=== PATIENT | female | born 1950 | race Caucasian/White ===

== ENCOUNTER 2025-02-07 15:55 | Inpatient (IN) | payer OTHER, SELFPAY ==
--- NOTE | ~2025-02-07 | CT_ITS ---
Procedure: CT hip RT wo con Ordering provider: Esperanza Wen PA-C History: . right hip pain, fall, possible fracture . Comparison: None. Technique: Thin slice axial CT of the No IV contrast was given. Sagittal and coronal reformatted imag es were also obtained and reviewed. Radiation reduction technique utilized.The dose-length product wa s 120.55 mGy-cm. Findings: BONES: Fracture is seen in the subcapital area of the right femoral neck with no significant displace ment JOINT SPACES: Normal. SOFT TISSUES: Soft tissue density around the femoral neck which may be a hematoma. IMPRESSION: Fracture of the right femoral neck in the subcapital area. No other fractures seen. Reviewed, dictated and finalized at location A.
--- NOTE | ~2025-02-07 | XR_ITS ---
EXAMINATION: XR surgery orthopedic DATE: 02/08/2025 12:29 INDICATION: Right hip pinning TECHNIQUE: 2 fluoroscopic images of the right hip were obtained during procedure performed by Dr. Raysa vásquez. Radiologist was not present for the imaging or procedure. The amount of fluoroscopy time used d uring this procedure was 1.3 minutes. Total DAP was 3.36 Gycm^2. COMPARISON: None. FINDINGS: Interval fixation of a subcapital fracture of the proximal right femur with 3 cannulated lag screws. No new fractures identified. Alignment remains essentially anatomic. Mild right hip osteoarthritis. IMPRESSION: 1. Fluoroscopy utilized during lag screw fixation of a nondisplaced subcapital fracture of the proxim al right femur which remains in near-anatomic alignment. See procedure note for further detail. Reviewed, dictated and finalized at location A. IMPRESSION: 1. Fluoroscopy utilized during lag screw fixation of a nondisplaced subcapital fracture of the proximal right femur which remains in near-anatomic alignment. See procedure note for further detail.
--- NOTE | ~2025-02-07 | XR_ITS ---
XR hip RT 2V w AP pelvis Ordering provider: Esperanza Wen PA-C History: . FALL, HIP PAIN . Comparison: None. FINDINGS: BONES: Highly suggestive right femoral neck fracture in the subcapital area. CT evaluation advised. HIP JOINT SPACES: Bilateral hip severe osteoarthritic changes. SACROILIAC JOINT SPACES/LUMBAR SPINE: The sacroiliac joint spaces are normal. Mild degenerative beltran es of the visualized lower lumbar spine. PUBIC SYMPHYSIS: Normal. SOFT TISSUES: Normal. IMPRESSION: Highly suggestive fracture in the right femoral neck. CT evaluation advised. Reviewed, dictated and finalized at location A.
--- NOTE | ~2025-02-07 | XR_ITS ---
XR wrist RT min 3V Ordering provider: Esperanza Wen PA-C History: . fall, wrist pain . Comparison: None. FINDINGS: BONES: Possible fracture in the scaphoid bone is noted. Follow-up advised. Osteopenia of the bones. JOINT SPACES: Osteoarthritic changes of the first carpometacarpal joint and in the scaphotrapezial ken int. SOFT TISSUES: Normal. IMPRESSION: Possible fracture in the scaphoid bone. Follow-up advised. Reviewed, dictated and finalized at location A.
--- NOTE | ~2025-02-07 | XR_ITS ---
CHEST RADIOGRAPH CLINICAL HISTORY: fall . COMPARISON: None available TECHNIQUE: Single portable view of the chest. FINDINGS The cardiomediastinal silhouette is unremarkable. The lungs are clear. IMPRESSION: No focal infiltrate or effusion. Reviewed, dictated and finalized at location A.
[2025-02-07 15:58] VITALS: BP 146/74; PULSE 70; RESP 18; TEMP 36.4; O2SAT 99
--- NOTE | 2025-02-07 16:29 | ED_ITS ---
HPI - Fall General Chief Complaint: Fall Stated Complaint: GLF, R hip pain Time Seen by Provider: 02/07/25 15:59 Source: patient Mode of arrival: EMS Limitations: no limitations History of Present Illness HPI Narrative: This is a 74 year old female that presents to the ER after a fall today with right hip pain. Reports she was trying to fix the soap dispenser on the wall. She was trying to pull it off the wall and fell backwards. Landed on her right hip and wrist. Reports pain in the wrist. Unable to bear weight on the right leg. She did not hit her head or lose consciousness. She is not on anticoagulation. Related Data Home Medications ?Medication ?Instructions ?Recorded ?Confirmed ?Last Taken ?Type albuterol sulfate 90 mcg/actuation 2 puff inhalation Q4H PRN 02/07/25 02/07/25 Unknown History aerosol inhaler shortness of breath or wheezing Allergies Allergy/AdvReac Type Severity Reaction Status Date / Time egg Allergy Unknown Drowsy Verified 02/07/25 16:03 No Known Allergies Allergy Verified 02/07/25 16:03 Review of Systems 2 Review of Systems: All systems reviewed & are unremarkable except as noted in HPI and below PMFSH Past Medical History Medical History COPD, severe Family History Family History Father Acute myocardial infarction Mother Family history of malignant neoplasm Social History Social History Smoking packs per day: 1 Smoking cigarettes per day: 20.0 Years smoked: 50 Smoking pack-years: 50.00 Smoking status: Current every day smoker Alcohol intake: never Substance use: never Do You Feel Safe in your Home?: Yes Lack of Transportation: No Lack of Food: Never True Current Housing: I Have Housing Concerned About Future Housing: No Difficulty Paying Gas/Electric Bills: No Difficulty Paying for Meds: No Currently Unemployed: No Education: Associate Degree Difficulty w/ Childcare or Family Care: No Spiritual care concerns: No Exam 2 Narrative: GENERAL: Elderly, well-nourished, and in no acute distress. HEAD: Normocephalic, atraumatic. EYES: PERRLA and EOMI. ENT: Nares clear, no rhinorrhea or epistaxis. Mucous membranes moist. Oropharynx without tonsillar hypertrophy exudate or other lesions. NECK: Supple. No adenopathy or masses. CHEST: Clear to auscultation. No respiratory distress. No wheezes rales or rhonchi HEART: Regular rate and rhythm. No murmur heard. Normal peripheral pulses. EXTREMITIES: Normal range of motion, except decreased active ROM in the right hip. No edema. Normal DP and radial pulses. Normal sensation SKIN: Warm, dry, no rash. NEURO: No focal deficits. Alert and oriented x3. PSYCH: Normal mood and affect Course Course Emergency Course: Patient and family updated on workup and need for admission Consultations Consultation #1: Spoke with Dr. Francisco who will consult. Patient will be NPO at midnight Date: 02/07/25 Consultation #2: Spoke with hospitalist about patient and workup who accepts admission Date: 02/07/25 Vital Signs Vital signs: Vital Signs Temperature 97.6 F 02/07/25 15:58 Pulse Rate 70 02/07/25 15:58 Respiratory Rate 18 02/07/25 15:58 Blood Pressure 146/74 H 02/07/25 15:58 Pulse Oximetry 99 02/07/25 15:58 Oxygen Delivery Room Air 02/07/25 15:58 Temperature 98.6 F 02/08/25 15:38 Pulse Rate 75 02/08/25 15:38 Respiratory Rate 18 02/08/25 15:38 Blood Pressure 121/55 L 02/08/25 15:38 Pulse Oximetry 96 02/08/25 15:38 Oxygen Delivery Nasal Cannula 02/08/25 14:49 Oxygen Flow Rate 2 02/08/25 14:49 Procedures Orthopedic Splinting/Casting Injury #1: Splinting/Casting Date: 02/07/25 Side: right Upper Extremity Injury Location: wrist OCL: volar Pre-Procedure Neuro Vascular Exam: normal Post-Procedure Neuro Vascular Exam: normal MDM - Fall MDM Narrative Medical decision making narrative: Patient presents to the emergency department after a ground level fall at work with right hip and wrist pain. She is neurologically intact. She did not hit her head or lose consciousness. Her vitals are stable. Cbc and metabolic panel without concerning findings. Hip x-ray showing possible femoral neck fracture. CT obtained which does confirm fracture in the right femoral neck. Right wrist x-ray showing possible fracture in the scaphoid bone. This is the area of patient's discomfort. Will place patient in a splint. Spoke with Dr. Francisco about patient and workup. Patient will be made NPO at midnight. Spoke with hospitalist about patient and workup who accepts admission Differential Diagnosis Differential diagnosis: Likely other (Hip fracture, pelvic fracture, wrist fracture) Lab Data Attestation: I reviewed the patient's lab results. 02/08/25 05:22 02/08/25 05:22 Labs: Lab Results 02/07/25 02/08/25 Range/Units 18:05 05:22 WBC 9.6 7.3 (4.5-10.0) K/mm3 RBC 4.01 L 3.69 L (4.2-5.4) M/mm3 Hgb 12.7 12.0 (12.0-15.0) g/dL Hct 38.5 36.0 L (37.0-47.0) % MCV 96.0 97.6 (80-100) fl MCH 31.7 32.5 (26-34) pg MCHC 33.0 33.3 (32-36) g/dl RDW 13.1 13.1 (11.5-14.5) % Plt Count 184 151 (150-375) k/mm3 MPV 9.4 10.0 (7.4-10.4) fl Immature Gran % (Auto) 0.5 0.4 (0-0.5) % Neut % (Auto) 84.5 H 81.2 H (45.5-73.1) % Lymph % (Auto) 9.0 L 8.7 L (18.3-44.2) % [facility] % (Auto) 4.3 7.6 (2.6-8.5) % Eos % (Auto) 1.4 1.7 (0-4.4) % Baso % (Auto) 0.3 0.4 (0.2-1.2) % Lymph # (Auto) 0.87 L 0.63 L (0.9-3.2) K/mm3 [facility] # (Auto) 0.4 0.6 (0.1-0.6) K/mm3 Eos # (Auto) 0.1 0.1 (0-0.3) K/mm3 Baso # (Auto) 0.0 0.0 (0.0-0.1) K/mm3 Abs Immat Gran (auto) 0.05 H 0.03 (0.00-0.031) K/mm3 Absolute Neuts (auto) 8.1 H 5.9 (1.3-6.7) K/mm3 Absolute Nucleated RBC 0.000 0.000 (0.0-0.012) K/mm3 Nucleated RBC % 0.0 0.0 (0.0-0.2) % Sodium 138 138 (137-145) mmol/L Potassium 4.1 3.8 (3.4-5.0) mmol/L Chloride 105 107 (98-107) mmol/L Carbon Dioxide 26 26 (22-30) mmol/L Anion Gap 7 5 (4-12) mmol/L BUN 14 12 (7-17) mg/dL Creatinine 0.51 L 0.48 L (0.7-1.0) mg/dL Estim Creat Clear Calc 69 64 ml/min Estimated GFR > 60 > 60 (59 - ) Glucose 99 108 (65-110) mg/dL Calcium 9.1 8.6 (8.4-10.2) mg/dL Magnesium 2.1 (1.6-2.3) mg/dL Total Bilirubin 0.4 0.7 (0.2-1.3) mg/dL AST 26 22 (14-36) U/L ALT 17 15 (6-35) U/L Alkaline Phosphatase 43 35 L (38-126) U/L Total Protein 6.7 6.0 L (6.3-8.2) g/dL Albumin 4.0 3.6 (3.5-5.1) g/dL Imaging Data Radiologist's impression: ITS Impressions Wrist X-Ray 02/07/25 16:48 IMPRESSION: Possible fracture in the scaphoid bone. Follow-up advised. Chest X-Ray 02/07/25 16:49 IMPRESSION: No focal infiltrate or effusion. Hip/Pelvis X-Ray 02/07/25 16:50 IMPRESSION: Highly suggestive fracture in the right femoral neck. CT evaluation advised. Hip CT 02/07/25 17:42 IMPRESSION: Fracture of the right femoral neck in the subcapital area. No other fractures seen. Critical Care Time Critical Care Time Critical Care Time: No Discharge Plan Discharge Clinical Impression: Fracture of right femur Qualifiers: Encounter type: initial encounter Femur location: neck, unspecified portion F racture type: closed Qualified Code(s): S72.001A - Fracture of unspecified part of neck of right femur, initial encounter for closed fracture Fracture of scaphoid of right wrist Qualifiers: Encounter type: initial encounter Scaphoid bone location: unspecified portion of scaphoid Fracture type: closed Fracture alignment: nondisplaced Qualified Code(s): S62.001A - Unspecified fracture of navicular [scaphoid] bone of right wrist, initial encounter for closed fracture Patient Disposition: Still a Patient Condition: Stable
[2025-02-07] MEDS: ACETAMINOPHEN 500 MG TABLET 1000 MG PO (18:01)
[2025-02-07 18:03] VITALS: BP 125/82; PULSE 83; RESP 20; O2SAT 96
--- NOTE | 2025-02-07 18:03 | PC.NURSE ---
Pt declining anything stronger than tylenol for pain control.
[2025-02-07 18:11] LABS: Basophils Percent Auto 0.3 % (0.2-1.2); Eosinophils Absolute Auto 0.1 K/mm3 (0-0.3); Eosinophils Percent Auto 1.4 % (0-4.4); Hematocrit 38.5 % (37.0-47.0); Hemoglobin 12.7 g/dL (12.0-15.0); Immature Granulocyte Absolute 0.05 K/mm3 (0.00-0.031); Immature Granulocyte Percent A 0.5 % (0-0.5); Lymphocytes Absolute Auto 0.87 K/mm3 (0.9-3.2); Mean Corpuscular Hemoglobin 31.7 pg (26-34); Mean Platelet Volume 9.4 fl (7.4-10.4); Monocytes Absolute Auto 0.4 K/mm3 (0.1-0.6); Monocytes Percent Auto 4.3 % (2.6-8.5); Neutrophils Absolute Auto 8.1 K/mm3 (1.3-6.7); Neutrophils Percent Auto 84.5 % (45.5-73.1); Platelet Count Result 184 k/mm3 (150-375); Red Blood Count 4.01 M/mm3 (4.2-5.4); Red Cell Distribution Width 13.1 % (11.5-14.5); White Blood Count 9.6 K/mm3 (4.5-10.0)
[2025-02-07 18:22] LABS: Alanine Aminotransferase 17 U/L (6-35); Alkaline Phosphatase 43 U/L (38-126); Anion Gap 7 mmol/L (4-12); Aspartate Amino Transferase 26 U/L (14-36); Bilirubin,Total 0.4 mg/dL (0.2-1.3); Blood Urea Nitrogen 14 mg/dL (7-17); Calcium 9.1 mg/dL (8.4-10.2); Carbon Dioxide 26 mmol/L (22-30); Chloride 105 mmol/L (98-107); Estimated CRCL calculation 69 ml/min; Estimated Glomerular Filt Rate > 60; Glucose 99 mg/dL (65-110); Potassium 4.1 mmol/L (3.4-5.0); Sodium 138 mmol/L (137-145); Total Protein 6.7 g/dL (6.3-8.2)
[2025-02-07 19:25] VITALS: BP 154/75; PULSE 82; RESP 17; O2SAT 93
[2025-02-07] MEDS: oxyCODONE HCL (*CRX) 5 MG TAB IR PO (20:47)
[2025-02-07] MEDS: SODIUM CHLORIDE 0.9% IV 1,000 ML 125 ML IV CONT (21:21)
--- NOTE | 2025-02-07 21:32 | P.HP_ITS ---
H&P: HPI History of Present Illness Date/Time: 02/07/25 21:32 Chief Complaint: right hip pain Narrative: 74 yo female with PMH of COPD who presented to the ER on account of right hip pain after a fall. Noted she was fixing a dispenser in the bathroom at work when she pulled on it and fell backwards on her right side. Denies any chest pain, SOB, abd pain, diarrhea, vomiting or dysuria prior to episode. ER eval notable for vital stable and wnl, labs unremarkable, CT hip showed right femoral neck fracture Xray right wrist showed right scaphoid fracture. CXR unremarkable. Ortho was consulted prior to admission Review of Systems Review of Systems: All other systems were reviewed adn negative except as noted in the HPI above [facility] Past Medical History Medical History (Updated 02/07/25 @ 19:46 by Esperanza Wen PA-C) COPD, severe Family History Family History (Updated 09/21/18 @ 08:13 by DOCTOR UNKNOWN) Father Acute myocardial infarction Mother Family history of malignant neoplasm Meds Home Medications and Allergies Allergies Allergy/AdvReac Type Severity Reaction Status Date / Time egg Allergy Unknown Drowsy Verified 02/07/25 16:03 No Known Allergies Allergy Verified 02/07/25 16:03 Vital Signs Vital Signs - 24 hr 02/07/25 15:58 02/07/25 18:03 02/07/25 19:25 Temperature 97.6 F Pulse Rate 70 83 82 Respiratory Rate 18 20 17 Blood Pressure 146/74 H 125/82 154/75 H Pulse Oximetry 99 96 93 Oxygen Delivery Room Air Exam Narrative: General: alert and comfortable Eyes: EOMI, PERRLA ENNT External ears normal, Neck is supple, no masses, Respiratory systems: Clear to auscultation Cardiovascular S1, S2, normal rhythm, no murmur, rub, or gallop; no thrill or palpable murmurs on palpation. Gastrointestinal: soft, non-tender, and non-distended abdomen with no masses; BS present Skin: no rash, lesions, ulcerations, subcutaneous nodules or induration Musculoskeletal: limited ROM RE due to pain, and right wrist tenderness and swelling Neurologic: Alert and oriented x3, non focal Mental Status Exam: normal affect H&P: Results Labs Labs: Short CBC 02/07/25 Range/Units 18:05 WBC 9.6 (4.5-10.0) K/mm3 Hgb 12.7 (12.0-15.0) g/dL Hct 38.5 (37.0-47.0) % Plt Count 184 (150-375) k/mm3 BMP 02/07/25 18:05 Sodium 138 Potassium 4.1 Chloride 105 Carbon Dioxide 26 BUN 14 Creatinine 0.51 L Glucose 99 Calcium 9.1 Liver Function 02/07/25 Range/Units 18:05 Total Bilirubin 0.4 (0.2-1.3) mg/dL AST 26 (14-36) U/L ALT 17 (6-35) U/L Alkaline Phosphatase 43 (38-126) U/L Albumin 4.0 (3.5-5.1) g/dL Assessment and Plan Assessment and plan (1) Fracture of scaphoid of right wrist: Qualifiers: Encounter type: initial encounter Fracture alignment: nondisplaced Fracture type: closed Scaphoid bone location: unspecified portion of scaphoid Qualified Code(s): S62.001A - Unspecified fracture of navicular [scaphoid] bone of right wrist, initial encounter for closed fracture Code(s): S62.001A - Unspecified fracture of navicular [scaphoid] bone of right wrist, initial encounter for closed fracture Status: Acute (2) Fracture of right femur: Qualifiers: Encounter type: initial encounter Femur location: neck, unspecified portion Fracture type: closed Qualified Code(s): S72.001A - Fracture of unspecified part of neck of right femur, initial encounter for closed fracture Code(s): S72.91XA - Unspecified fracture of right femur, initial encounter for closed fracture Status: Acute Plan Right femoral neck fracture From mechanical fall CT hip reviewed Contineu PRN pain control Ortho consulted Right scaphoid fracture from fall as above PRN pain control and ortho consulted COPD DuoNeb prn Tobacco use patient counseled about cessation DVT prophylaxis on Sq lovenox Full code SDM: Edelmira Greenfieldaldson Hospitalist MIPS Advance Care Plan I have confirmed that the patient's Advanced Care Plan is present, code status is documented, or surrogate decision maker is listed in patient medical record.: Yes Medication Reconciliation I have utilized all available resources to obtain, update and review the patients current medications (includes all prescriptions, OTC, herbals, cannabis, and nutritional supplements).: Yes
[2025-02-07 21:58] VITALS: BMI 24.5
--- NOTE | 2025-02-07 22:14 | ADMGEN ---
This patient, Violet Lopez, was admitted to 2 Medical Room 259-01. Patient/family oriented to hospital policies and general routines including ID bracelet, bed and alarms, visiting hours, pain management, procedures, bathroom and other care routines, personal items, smoking policy, room service/diet, and visiting hours. Information on how to activate the Rapid Response Team has been discussed. Patient/Family are encouraged to report perceived risks to care and to ask questions if they do not understand what they are told or what they should do.
[2025-02-07 22:24] VITALS: BP 154/75; PULSE 82; RESP 17; O2SAT 93
[2025-02-07] MEDS: MORPHINE SULFATE (*CRX) 2 MG/ML INJ IV PUSH (22:26)
[2025-02-07 22:29] VITALS: BP 139/64; PULSE 87; RESP 24; TEMP 37; O2SAT 95
[2025-02-08] VITALS (13 sets, daily range): BP systolic 121–150; BP diastolic 48–73; PULSE 72–86; RESP 14–20; TEMP 36.8–37.4; O2SAT 90–100
[2025-02-08 05:58] LABS: Basophils Percent Auto 0.4 % (0.2-1.2); Eosinophils Absolute Auto 0.1 K/mm3 (0-0.3); Eosinophils Percent Auto 1.7 % (0-4.4); Immature Granulocyte Absolute 0.03 K/mm3 (0.00-0.031); Immature Granulocyte Percent A 0.4 % (0-0.5); Lymphocytes Absolute Auto 0.63 K/mm3 (0.9-3.2); Lymphocytes Percent Auto 8.7 % (18.3-44.2); Mean Corpuscular HGB Conc 33.3 g/dl (32-36); Mean Corpuscular Hemoglobin 32.5 pg (26-34); Mean Corpuscular Volume 97.6 fl (80-100); Monocytes Absolute Auto 0.6 K/mm3 (0.1-0.6); Monocytes Percent Auto 7.6 % (2.6-8.5); Neutrophils Absolute Auto 5.9 K/mm3 (1.3-6.7); Neutrophils Percent Auto 81.2 % (45.5-73.1); Platelet Count Result 151 k/mm3 (150-375); Red Blood Count 3.69 M/mm3 (4.2-5.4); Red Cell Distribution Width 13.1 % (11.5-14.5); White Blood Count 7.3 K/mm3 (4.5-10.0)
[2025-02-08 06:09] LABS: Alanine Aminotransferase 15 U/L (6-35); Albumin Level 3.6 g/dL (3.5-5.1); Alkaline Phosphatase 35 U/L (38-126); Anion Gap 5 mmol/L (4-12); Aspartate Amino Transferase 22 U/L (14-36); Bilirubin,Total 0.7 mg/dL (0.2-1.3); Blood Urea Nitrogen 12 mg/dL (7-17); Calcium 8.6 mg/dL (8.4-10.2); Carbon Dioxide 26 mmol/L (22-30); Chloride 107 mmol/L (98-107); Estimated CRCL calculation 64 ml/min; Estimated Glomerular Filt Rate > 60; Glucose 108 mg/dL (65-110); Magnesium 2.1 mg/dL (1.6-2.3); Potassium 3.8 mmol/L (3.4-5.0); Sodium 138 mmol/L (137-145)
[2025-02-08] MEDS: SODIUM CHLORIDE 0.9% IV 1,000 ML 125 ML IV CONT ×3 (08:16→20:39)
[2025-02-08] MEDS: IPRATROPIUM 0.5 MG/ALBUTEROL SULFATE 2.5 MG AMPUL.NEB 3 ML INHALATION (10:19)
--- NOTE | 2025-02-08 10:25 | WPDANESEPPF ---
Anes - Initial Pre Proc Eval Procedure: Operation Date: 02/08/25 11:00 Proposed Procedures p Hip Pinning Cannulated Screws(Right) - Rodrigo Francisco MD Date/Time: 02/08/25 10:25 Surgeon: Rodrigo Francisco MD Pre Op Diagnosis: Right hip fracture Patient Data Age: 74 Gender: F Height: 1.55 m Weight: 59 kg Last Vital Signs Temp 36.8 C 02/08/25 05:49 Pulse 81 02/08/25 10:21 Resp 16 02/08/25 10:21 BP 142/64 H 02/08/25 05:49 Pulse Ox 93 02/08/25 05:49 O2 Del Method Room Air 02/07/25 15:58 Allergies Allergy/AdvReac Type Severity Reaction Status Date / Time egg Allergy Unknown Drowsy Verified 02/07/25 16:03 No Known Allergies Allergy Verified 02/07/25 16:03 Home Medications ?Medication ?Instructions ?Recorded ?Confirmed ?Type albuterol sulfate 90 mcg/actuation 2 puff inhalation Q4H PRN 02/07/25 02/07/25 History aerosol inhaler shortness of breath or wheezing Laboratory Tests 02/07/25 02/08/25 18:05 05:22 WBC 9.6 K/mm3 7.3 K/mm3 (4.5-10.0) (4.5-10.0) RBC 4.01 L M/mm3 3.69 L M/mm3 (4.2-5.4) (4.2-5.4) Hgb 12.7 g/dL 12.0 g/dL (12.0-15.0) (12.0-15.0) Hct 38.5 % 36.0 L % (37.0-47.0) (37.0-47.0) MCV 96.0 fl 97.6 fl (80-100) (80-100) MCH 31.7 pg 32.5 pg (26-34) (26-34) MCHC 33.0 g/dl 33.3 g/dl (32-36) (32-36) RDW 13.1 % 13.1 % (11.5-14.5) (11.5-14.5) Plt Count 184 k/mm3 151 k/mm3 (150-375) (150-375) MPV 9.4 fl 10.0 fl (7.4-10.4) (7.4-10.4) Immature Gran % (Auto) 0.5 % 0.4 % (0-0.5) (0-0.5) Neut % (Auto) 84.5 H % 81.2 H % (45.5-73.1) (45.5-73.1) Lymph % (Auto) 9.0 L % 8.7 L % (18.3-44.2) (18.3-44.2) [facility] % (Auto) 4.3 % 7.6 % (2.6-8.5) (2.6-8.5) Eos % (Auto) 1.4 % 1.7 % (0-4.4) (0-4.4) Baso % (Auto) 0.3 % 0.4 % (0.2-1.2) (0.2-1.2) Lymph # (Auto) 0.87 L K/mm3 0.63 L K/mm3 (0.9-3.2) (0.9-3.2) [facility] # (Auto) 0.4 K/mm3 0.6 K/mm3 (0.1-0.6) (0.1-0.6) Eos # (Auto) 0.1 K/mm3 0.1 K/mm3 (0-0.3) (0-0.3) Baso # (Auto) 0.0 K/mm3 0.0 K/mm3 (0.0-0.1) (0.0-0.1) Abs Immat Gran (auto) 0.05 H K/mm3 0.03 K/mm3 (0.00-0.031) (0.00-0.031) Absolute Neuts (auto) 8.1 H K/mm3 5.9 K/mm3 (1.3-6.7) (1.3-6.7) Absolute Nucleated RBC 0.000 K/mm3 0.000 K/mm3 (0.0-0.012) (0.0-0.012) Nucleated RBC % 0.0 % 0.0 % (0.0-0.2) (0.0-0.2) Sodium 138 mmol/L 138 mmol/L (137-145) (137-145) Potassium 4.1 mmol/L 3.8 mmol/L (3.4-5.0) (3.4-5.0) Chloride 105 mmol/L 107 mmol/L (98-107) (98-107) Carbon Dioxide 26 mmol/L 26 mmol/L (22-30) (22-30) Anion Gap 7 mmol/L 5 mmol/L (4-12) (4-12) BUN 14 mg/dL 12 mg/dL (7-17) (7-17) Creatinine 0.51 L mg/dL 0.48 L mg/dL (0.7-1.0) (0.7-1.0) Estim Creat Clear Calc 69 ml/min 64 ml/min Estimated GFR > 60 > 60 (59 - ) (59 - ) Glucose 99 mg/dL 108 mg/dL (65-110) (65-110) Calcium 9.1 mg/dL 8.6 mg/dL (8.4-10.2) (8.4-10.2) Magnesium 2.1 mg/dL (1.6-2.3) Total Bilirubin 0.4 mg/dL 0.7 mg/dL (0.2-1.3) (0.2-1.3) AST 26 U/L 22 U/L (14-36) (14-36) ALT 17 U/L 15 U/L (6-35) (6-35) Alkaline Phosphatase 43 U/L 35 L U/L (38-126) (38-126) Total Protein 6.7 g/dL 6.0 L g/dL (6.3-8.2) (6.3-8.2) Albumin 4.0 g/dL 3.6 g/dL (3.5-5.1) (3.5-5.1) Patient hx anesthesia problems: none Family hx anesthesia problems: none Results Review: All pre-operative results and documents have been reviewed as part of the pre-operative evaluation. [facility] Past Medical History Medical History (Updated 02/07/25 @ 19:46 by Esperanza Wen PA-C) COPD, severe Family History Family History (Updated 09/21/18 @ 08:13 by DOCTOR UNKNOWN) Father Acute myocardial infarction Mother Family history of malignant neoplasm Social History Social History (Updated 02/08/25 @ 10:25 by Ty Sanon DO) Smoking packs per day: 1 Smoking cigarettes per day: 20.0 Years smoked: 50 Smoking pack-years: 50.00 Smoking status: Current every day smoker Alcohol intake: never Substance use: never Do You Feel Safe in your Home?: Yes Lack of Transportation: No Lack of Food: Never True Current Housing: I Have Housing Concerned About Future Housing: No Difficulty Paying Gas/Electric Bills: No Difficulty Paying for Meds: No Currently Unemployed: No Education: Associate Degree Difficulty w/ Childcare or Family Care: No Spiritual care concerns: No Anes - Eval Final PreProcedure Day of Procedure 02/08/25 10:25 Patient weight: normal Heart: regular rate and rhythm Lungs: clear to auscultation Airway: Mallampati scale class II Neurological: alert and oriented Last oral intake: >/= 8 hours ASA classification: III Emergent: no Anesthetic plan: proceed Anesthesia type and monitoring: general LMA and standard monitoring Results Review: All pre-operative results and documents have been reviewed as part of the pre-operative evaluation. Informed Consent: The patient's anesthetic plan and its attendant risks and benefits were discussed with the patient/family/POA. Questions were solicited and answers provided to the satisfaction of the patient/family/POA.
--- NOTE | 2025-02-08 10:59 | WPDHPUPDATE1 ---
History and Physical Update Update Date/Time: 02/08/25 10:59 History and Physical has been reviewed, including an updated exam of the patient. There are NO changes in the patient's condition. Risks, benefits, and alternatives have been discussed and questions answered. Patient agrees to proceed with procedure. The patient was advised of a procedure which is a right hip percutaneous screw fixation she understands that this will enable us to save the femoral head. The disadvantage is that there is a possibility that she may need additional surgery if this does not heal and the femoral head does not survive which will be a hemiarthroplasty. Therefore the risks include but are not limited to infection nerve and blood vessel injury nonunion malunion requiring additional surgery and she agrees to proceed deep venous thrombosis is also a risk for this procedure
--- NOTE | 2025-02-08 11:01 | P.HP_ITS ---
H&P: HPI History of Present Illness Date/Time: 02/08/25 11:01 Chief Complaint: Right hip fracture, right wrist scaphoid fracture Narrative: Pain is located over the anterior aspect of the right hip with any movement. It is a sharp sensation. Continuous. Feels better when she is not moving. The pain started after the patient fell onto the right hip yesterday The patient is a part-time employee at [employer]. He was removing a broken soap dispenser from the wall at which time the substance her broke free unexpectedly when she pulled back on it and she landed onto her right hip and also onto her right outstretched upper extremity. She was unable to bear weight on this and was brought to the [facility] Emergency Room by ambulance. She reports pain nowhere else except for the right wrist and also in the right hip. Review of Systems Review of Systems: All systems reviewed & are unremarkable except as noted in HPI and below Constitutional: Constitutional: Reports as per HPI PMFSH Past Medical History Medical History COPD, severe Family History Family History Father Acute myocardial infarction Mother Family history of malignant neoplasm Social History Social History Smoking packs per day: 1 Smoking cigarettes per day: 20.0 Years smoked: 50 Smoking pack-years: 50.00 Smoking status: Current every day smoker Alcohol intake: never Substance use: never Do You Feel Safe in your Home?: Yes Lack of Transportation: No Lack of Food: Never True Current Housing: I Have Housing Concerned About Future Housing: No Difficulty Paying Gas/Electric Bills: No Difficulty Paying for Meds: No Currently Unemployed: No Education: Associate Degree Difficulty w/ Childcare or Family Care: No Spiritual care concerns: No Meds Home Medications and Allergies Home Medications ?Medication ?Instructions ?Recorded ?Confirmed ?Type albuterol sulfate 90 mcg/actuation 2 puff inhalation Q4H PRN 02/07/25 02/07/25 History aerosol inhaler shortness of breath or wheezing Allergies Allergy/AdvReac Type Severity Reaction Status Date / Time egg Allergy Unknown Drowsy Verified 02/07/25 16:03 No Known Allergies Allergy Verified 02/07/25 16:03 Vital Signs Vital Signs - 24 hr 02/07/25 15:58 02/07/25 18:03 02/07/25 19:25 Temperature 36.4 C Pulse Rate 70 83 82 Respiratory Rate 18 20 17 Blood Pressure 146/74 H 125/82 154/75 H Pulse Oximetry 99 96 93 Oxygen Delivery Room Air 02/07/25 22:24 02/07/25 22:29 02/08/25 05:49 Temperature 37.0 C 36.8 C Pulse Rate 82 87 85 Respiratory Rate 17 24 H 20 Blood Pressure 154/75 H 139/64 142/64 H Pulse Oximetry 93 95 93 Oxygen Delivery 02/08/25 08:15 02/08/25 10:21 02/08/25 10:27 Temperature Pulse Rate 81 73 Respiratory Rate 16 20 Blood Pressure Pulse Oximetry Oxygen Delivery Room Air Exam Narrative: On examination of the patient she is awake and alert and oriented to person place and time. The right lower extremity shows good capillary refill and good sensation to all her toes. She has no swelling tenderness or deformity to the right knee or left knee to the right ankle or the left ankle and no pain with range of motion of the left hip. Right upper extremity examination reveals tenderness over the anatomic snuffbox. I took down the splint in order to examine her right hand. Left upper extremity shows no swelling tenderness or deformity of the shoulder elbow or the wrist. No swelling tenderness or deformity of the right elbow or the right shoulder. Bilateral lower extremities are equal in length with no evidence of shortening of the right lower extremity. Const: General: cooperative, healthy appearing, comfortable, no acute distress, well developed, alert, awake and average body habitus Nutritional Appearance: average body habitus Orientation/consciousness: oriented to person, oriented to place and oriented to time H&P: Results Labs Labs: Short CBC 02/07/25 02/08/25 Range/Units 18:05 05:22 WBC 9.6 7.3 (4.5-10.0) K/mm3 Hgb 12.7 12.0 (12.0-15.0) g/dL Hct 38.5 36.0 L (37.0-47.0) % Plt Count 184 151 (150-375) k/mm3 [facility] 02/07/25 02/08/25 18:05 05:22 Sodium 138 138 Potassium 4.1 3.8 Chloride 105 107 Carbon Dioxide 26 26 BUN 14 12 Creatinine 0.51 L 0.48 L Glucose 99 108 Calcium 9.1 8.6 Liver Function 02/07/25 02/08/25 Range/Units 18:05 05:22 Total Bilirubin 0.4 0.7 (0.2-1.3) mg/dL AST 26 22 (14-36) U/L ALT 17 15 (6-35) U/L Alkaline Phosphatase 43 35 L (38-126) U/L Albumin 4.0 3.6 (3.5-5.1) g/dL Assessment and Plan Assessment and plan (1) Fracture of scaphoid of right wrist: Qualifiers: Encounter type: initial encounter Fracture alignment: nondisplaced Fracture type: closed Scaphoid bone location: unspecified portion of scaphoid Qualified Code(s): S62.001A - Unspecified fracture of navicular [scaphoid] bone of right wrist, initial encounter for closed fracture Code(s): S62.001A - Unspecified fracture of navicular [scaphoid] bone of right wrist, initial encounter for closed fracture Status: Acute (2) Fracture of right femur: Qualifiers: Encounter type: initial encounter Femur location: neck, unspecified portion Fracture type: closed Qualified Code(s): S72.001A - Fracture of unspecified part of neck of right femur, initial encounter for closed fracture Code(s): S72.91XA - Unspecified fracture of right femur, initial encounter for closed fracture Status: Acute Plan The patient is a 74-year-old female who sustained a right hip minimally displaced valgus impacted femoral neck fracture along with a nondisplaced right wrist scaphoid fracture after work-related injury 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 She was removing a nonfunctional soap dispenser from a wall that had glue affixed to the wall at which time it broke free and she fell backwards and landed onto her right upper extremity as well as the right hip. He was unable to ambulate and was taken to the [facility] Emergency Room by ambulance. It was at this time that she was diagnosed with the above fractures. 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 She lives with her Jeremy. She has 3 children. Today interview the patient I advised her my recommendation for percutaneous screw fixation of the right hip and the risks associated with that which include but are not limited to infection or blood vessel injury nonunion malunion requiring additional surgery possibility of a conversion to a right hip hemiarthroplasty and she agrees to proceed. She also understands the risks also include possibility of DVT for which we will anticoagulate her with aspirin 81 mg twice a day postoperatively for 30 days.
[2025-02-08] MEDS: ceFAZolin SODIUM 1 GM VIAL (11:35)
[2025-02-08] MEDS: LIDO 1%/EPINEPHRINE 1:100,000 50 ML VIAL 30 ML INFILTRATE (11:36)
[2025-02-08] MEDS: ceFAZolin SODIUM 1 GM VIAL IRRIGATION (11:51)
[2025-02-08] MEDS: LACTATED RINGERS 1,000 ML 30 ML IV CONT (12:36)
--- NOTE | 2025-02-08 12:44 | P.OP_ITS ---
Procedure Note - Detailed Date of Procedure 02/08/25 Pre-op Diagnosis Right Hip Minimally displaced Valgus impacted Femoral Neck Fracture Post-op Diagnosis Same Procedure Performed 1. Right Hip Percutaneous Screw Fixation 2. 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 He was pulled broken soap dispenser off the wall to fix it and replace it. The summed tensor was glued to the she pulled this off the wall and unexpectedly gave way and she landed onto her right hip as well as her right upper extremity. She was seen in the emergency department here at [facility] and diagnosed with a valgus impacted stable right hip minimally displaced femoral neck fracture as well as a nondisplaced right wrist scaphoid fracture. She reports no other injuries. 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 She lives at home with her Jeremy. She works part-time at [employer] about 3 days a week. She has been doing this for about a year. The patient was advised of the risks benefits alternatives and complications of this procedure and she agreed to proceed. The risks include but are not limited to infection or blood vessel injury DVT nonunion malunion requiring additional surgery specifically a right hip hemiarthroplasty in addition to possibility for deep venous thrombosis the patient agreed to proceed. Findings Right hip valgus impacted stable femoral neck fracture Description of Procedure After obtaining consent and marking the correct hip which is the right hip patient was then brought to the operating room placed in supine position a perception with general anesthesia. The patient was placed on a fracture table with the left lower extremity flexed at 90? at the hip and the knee and the right lower extremity was in full extension at the hip and the knee. There is no need for any traction using this table. All bony prominences were padded. Fluoroscopy was used initially in order to determine that the fracture was indeed still valgus impacted stable it was with no difference compared to the x- rays that were performed in the emergency room yesterday. After this was done the right hip was then prepped and draped in a standard sterile fashion. Again fluoroscopy was used to verify screw positioning as well as guidewire position. The 1st guidewire was placed in most inferior aspect of the femoral neck being sure to be proximal to the level of the lesser trochanter on the AP view in order to avoid subtrochanteric fracture with a stress riser. After this 1st pin was placed AP and lateral views were used in order to verify that the pain was indeed extra-articular. The additional 2 pins were placed proximal 1 anterior 1 posterior and again AP and lateral views using fluoroscopy was used in order to determine that the pins were extra-articular. A measuring guide was then used and all the screws were measured at 80 mm in length and these were 6.5 mm diameter partially cannulated screws. After this was determined I then placed all the screws in place and verified again adequate positioning with being sure to make sure that the screws were indeed extra-articular and lateral and AP views. After this was done I then irrigated the incisions out copiously injected with lidocaine and epinephrine and closed the dermal layer using 2-0 Vicryl suture then Steri-Strips were then placed. The patient was then transferred to the recovery room in stable condition. Fluoroscopy was used in this procedure to verify screw positioning as well as to guide the guidewires in the appropriate positioning on AP and lateral views. [employer]plants [employer] partially-threaded cannulated screws were used for the case. Estimated Blood Loss 25 Drains No Packing No Pathology None sent Complications None Condition Stable Disposition PACU
[2025-02-08] MEDS: fentaNYL CITRATE INJ (*CRX) 100 MCG/2 ML VIAL 25 MCG IV PUSH ×2 (13:16→13:20)
--- NOTE | 2025-02-08 16:07 | PM.IMPN ---
Progress Note: A&P Assessment and Plan (1) Fracture of scaphoid of right wrist: Qualifiers: Encounter type: initial encounter Fracture alignment: nondisplaced Fracture type: closed Scaphoid bone location: unspecified portion of scaphoid Qualified Code(s): S62.001A - Unspecified fracture of navicular [scaphoid] bone of right wrist, initial encounter for closed fracture Code(s): S62.001A - Unspecified fracture of navicular [scaphoid] bone of right wrist, initial encounter for closed fracture Status: Acute (2) Fracture of right femur: Qualifiers: Encounter type: initial encounter Femur location: neck, unspecified portion Fracture type: closed Qualified Code(s): S72.001A - Fracture of unspecified part of neck of right femur, initial encounter for closed fracture Code(s): S72.91XA - Unspecified fracture of right femur, initial encounter for closed fracture Status: Acute Plan Right femoral neck fracture From mechanical fall S/P repair. Right Hip Percutaneous Screw Fixation CT hip reviewed Continue PRN pain control Ortho team on board Right scaphoid fracture from fall as above PRN pain control ortho team on board COPD DuoNeb prn Tobacco use patient counseled about cessation DVT prophylaxis on Sq lovenox Full code SDM: Jeremy Lopez Subjective Date/time seen: 02/08/25 16:07 Interval history: per hpi: 74 yo female with PMH of COPD who presented to the ER on account of right hip pain after a fall. Noted she was fixing a dispenser in the bathroom at work when she pulled on it and fell backwards on her right side. Denies any chest pain, SOB, abd pain, diarrhea, vomiting or dysuria prior to episode. ER eval notable for vital stable and wnl, labs unremarkable, CT hip showed right femoral neck fracture Xray right wrist showed right scaphoid fracture. CXR unremarkable. Ortho was consulted prior to admission 02/08/25 Patient was seen and examined at bedside. She is back from surgery. Pain is under control. Denies any chest pain, shortness off breath, nausea vomiting. Review of Systems Review of Systems: All other systems were reviewed adn negative except as noted in the HPI above Exam Narrative: General: alert and comfortable Eyes: EOMI, PERRLA ENNT External ears normal, Neck is supple, no masses, Respiratory systems: Clear to auscultation Cardiovascular S1, S2, normal rhythm, no murmur, rub, or gallop; no thrill or palpable murmurs on palpation. Gastrointestinal: soft, non-tender, and non-distended abdomen with no masses; BS present Skin: no rash, lesions, ulcerations, subcutaneous nodules or induration Musculoskeletal: limited ROM RE due to pain, and right wrist in cast Neurologic: Alert and oriented x3, non focal Mental Status Exam: normal affect Objective Data Vital Signs Vital Signs: Vital Signs - 24 hr 02/07/25 18:03 02/07/25 19:25 02/07/25 22:24 Temperature Pulse Rate 83 82 82 Respiratory Rate 20 17 17 Blood Pressure 125/82 154/75 H 154/75 H Pulse Oximetry 96 93 93 Oxygen Delivery Oxygen Flow Rate 02/07/25 22:29 02/08/25 05:49 02/08/25 08:15 Temperature 98.6 F 98.3 F Pulse Rate 87 85 Respiratory Rate 24 H 20 Blood Pressure 139/64 142/64 H Pulse Oximetry 95 93 Oxygen Delivery Room Air Oxygen Flow Rate 02/08/25 10:21 02/08/25 10:27 02/08/25 12:36 Temperature 99.4 F Pulse Rate 81 73 73 Respiratory Rate 16 20 16 Blood Pressure 121/48 L Pulse Oximetry 100 Oxygen Delivery Simple Face Mask Oxygen Flow Rate 8 02/08/25 12:55 02/08/25 13:10 02/08/25 13:25 Temperature Pulse Rate 73 77 82 Respiratory Rate 16 16 14 Blood Pressure 150/73 H 141/70 H 137/52 L Pulse Oximetry 100 90 95 Oxygen Delivery Simple Face Mask Room Air Nasal Cannula Oxygen Flow Rate 8 2 02/08/25 13:40 02/08/25 13:50 02/08/25 14:15 Temperature 98.8 F Pulse Rate 86 76 77 Respiratory Rate 18 16 18 Blood Pressure 130/58 L 121/61 128/73 Pulse Oximetry 96 96 93 Oxygen Delivery Nasal Cannula Nasal Cannula Oxygen Flow Rate 2 2 02/08/25 14:26 02/08/25 14:49 02/08/25 15:09 Temperature 98.8 F Pulse Rate 72 Respiratory Rate 18 Blood Pressure 131/51 L Pulse Oximetry 96 Oxygen Delivery Nasal Cannula Nasal Cannula Oxygen Flow Rate 2 2 02/08/25 15:38 Temperature 98.6 F Pulse Rate 75 Respiratory Rate 18 Blood Pressure 121/55 L Pulse Oximetry 96 Oxygen Delivery Oxygen Flow Rate Intake/Output Intake/Output: Intake & Output 02/05/25 02/06/25 02/07/25 02/08/25 23:59 23:59 23:59 23:59 Intake Total 1327.1 Output Total 300 Balance 1027.1 Meds/Results Medications: Active Medications Generic Name Dose Route Start Last Admin Trade Name Freq PRN Reason Stop Dose Admin Hydrocodone Bitart/Acetaminophen 1 tab 02/08/25 12:38 Hydrocodone/Acetaminophen (*Crx) 5-325 Mg Tablet PO Q4H PRN Pain Rated 4-6 Hydrocodone Bitart/Acetaminophen 1 tab 02/08/25 12:38 Hydrocodone/Acetaminophen (*Crx) 10-325 Mg Tablet PO Q4H PRN Pain Rated 7-10 Al Hydrox/Mg Hydrox/Simethicone 30 ml 02/08/25 12:38 Mag Hydrox/Al Hydrox/Simeth 30 Ml Udc PO Q6H PRN Indigestion Bisacodyl 10 mg 02/08/25 12:38 Bisacodyl 10 Mg Suppository RECTAL DAILY PRN Constipation Enoxaparin Sodium 40 mg 02/08/25 09:00 02/08/25 07:52 Enoxaparin 40 Mg/0.4 Ml Syringe SUB-Q Not Given DAILY LUNA Famotidine 20 mg 02/08/25 21:00 Famotidine 20 Mg Tablet PO Q12HR LUNA Hydromorphone HCl 1 mg 02/08/25 12:46 Hydromorphone Hcl Inj (*Crx) 2 Mg/Ml Vial IV PUSH Q2H PRN Breakthrough Pain Rated 7-10 or NPO Hydromorphone HCl 0.5 mg 02/08/25 12:46 Hydromorphone Hcl Inj (*Crx) 2 Mg/Ml Vial IV PUSH Q2H PRN Breakthrough Pain Rated 4-6 or NPO Hydroxyzine Pamoate 50 mg 02/08/25 12:38 Hydroxyzine Pamoate 25 Mg Capsule PO Q4H PRN Itching Ibuprofen 400 mg/ Sodium 104 mls @ 208 mls/hr 02/07/25 20:07 Chloride IVPB Q6H PRN Pain Rated 4-6 Sodium Chloride 1,000 mls @ 125 mls/hr 02/08/25 12:40 02/08/25 15:54 Normal Saline Iv IV CONT 125 mls/hr .Q8H LUNA Administration Cefazolin Sodium 2 gm in 50 mls @ 100 mls/hr 02/08/25 19:00 Ancef 2 Gm/D5w 50 Ml IVPB 02/09/25 11:29 Q8H LUNA Ibuprofen 800 mg in 200 mls @ 400 mls/hr 02/08/25 12:38 Caldolor 800 Mg/200 Ml IVPB Q6H PRN Breakthrough Pain Rated 1-3 or NPO Naloxone HCl 0.1 mg 02/08/25 12:38 Naloxone Hcl 0.4 Mg/Ml Vial IV PUSH Q2M PRN Opiate Reversal Ondansetron HCl 4 mg 02/08/25 10:26 Ondansetron Inj 4 Mg/2 Ml Vial IV PUSH ONCE PRN Nausea Ondansetron HCl 4 mg 02/08/25 12:38 Ondansetron Inj 4 Mg/2 Ml Vial IV PUSH Q4H PRN Nausea And Vomiting Polyethylene Glycol 17 gm 02/09/25 09:00 Polyethylene Glycol 3350 17 Gm Powd.Pack PO QAM LUNA Senna/Docusate Sodium 2 tab 02/08/25 17:00 Senna/Docusate Sodium Tablet PO BID LUNA Tramadol HCl 50 mg 02/08/25 12:38 Tramadol Hcl (*Crx) 50 Mg Tablet PO Q4H PRN Pain Rated 1-3 Radiology Results: ITS Impressions Wrist X-Ray 02/07/25 16:48 IMPRESSION: Possible fracture in the scaphoid bone. Follow-up advised. Chest X-Ray 02/07/25 16:49 IMPRESSION: No focal infiltrate or effusion. Hip/Pelvis X-Ray 02/07/25 16:50 IMPRESSION: Highly suggestive fracture in the right femoral neck. CT evaluation advised. Hip CT 02/07/25 17:42 IMPRESSION: Fracture of the right femoral neck in the subcapital area. No other fractures seen. Intraoperative X-Ray 02/08/25 12:38 IMPRESSION: 1. Fluoroscopy utilized during lag screw fixation of a nondisplaced subcapital fracture of the proximal right femur which remains in near-anatomic alignment. See procedure note for further detail. Labs Labs: Laboratory Results - last 24 hr 02/07/25 02/08/25 18:05 05:22 WBC 9.6 7.3 RBC 4.01 L 3.69 L Hgb 12.7 12.0 Hct 38.5 36.0 L MCV 96.0 97.6 MCH 31.7 32.5 MCHC 33.0 33.3 RDW 13.1 13.1 Plt Count 184 151 MPV 9.4 10.0 Immature Gran % (Auto) 0.5 0.4 Neut % (Auto) 84.5 H 81.2 H Lymph % (Auto) 9.0 L 8.7 L [place] % (Auto) 4.3 7.6 Eos % (Auto) 1.4 1.7 Baso % (Auto) 0.3 0.4 Lymph # (Auto) 0.87 L 0.63 L [place] # (Auto) 0.4 0.6 Eos # (Auto) 0.1 0.1 Baso # (Auto) 0.0 0.0 Abs Immat Gran (auto) 0.05 H 0.03 Absolute Neuts (auto) 8.1 H 5.9 Absolute Nucleated RBC 0.000 0.000 Nucleated RBC % 0.0 0.0 Sodium 138 138 Potassium 4.1 3.8 Chloride 105 107 Carbon Dioxide 26 26 Anion Gap 7 5 BUN 14 12 Creatinine 0.51 L 0.48 L Estim Creat Clear Calc 69 64 Estimated GFR > 60 > 60 Glucose 99 108 Calcium 9.1 8.6 Magnesium 2.1 Total Bilirubin 0.4 0.7 AST 26 22 ALT 17 15 Alkaline Phosphatase 43 35 L Total Protein 6.7 6.0 L Albumin 4.0 3.6
[2025-02-08] MEDS: ceFAZolin 2 GM/D5W 50 ML 2 GM/50 ML BAG IVPB (18:04)
[2025-02-08] MEDS: SENNA/DOCUSATE SODIUM TABLET 2 TAB PO (18:04)
[2025-02-08] MEDS: HYDROcodone/acetaminophen (*CRX) 5-325 MG TABLET 1 TAB PO (18:04)
[2025-02-08] MEDS: FAMOTIDINE 20 MG TABLET PO (20:39)
[2025-02-09] VITALS (8 sets, daily range): BP systolic 118–146; BP diastolic 49–62; PULSE 63–73; RESP 16–20; TEMP 36.4–37; O2SAT 92–96
[2025-02-09] MEDS: ceFAZolin 2 GM/D5W 50 ML 2 GM/50 ML BAG IVPB ×2 (02:33→11:19)
[2025-02-09 05:36] LABS: Basophils Percent Auto 0.5 % (0.2-1.2); Eosinophils Absolute Auto 0.3 K/mm3 (0-0.3); Eosinophils Percent Auto 4.3 % (0-4.4); Hematocrit 32.9 % (37.0-47.0); Hemoglobin 10.7 g/dL (12.0-15.0); Immature Granulocyte Absolute 0.04 K/mm3 (0.00-0.031); Immature Granulocyte Percent A 0.7 % (0-0.5); Lymphocytes Absolute Auto 0.59 K/mm3 (0.9-3.2); Lymphocytes Percent Auto 9.8 % (18.3-44.2); Mean Corpuscular HGB Conc 32.5 g/dl (32-36); Mean Corpuscular Hemoglobin 32.2 pg (26-34); Mean Corpuscular Volume 99.1 fl (80-100); Mean Platelet Volume 10.4 fl (7.4-10.4); Monocytes Absolute Auto 0.5 K/mm3 (0.1-0.6); Monocytes Percent Auto 8.9 % (2.6-8.5); Neutrophils Absolute Auto 4.6 K/mm3 (1.3-6.7); Neutrophils Percent Auto 75.8 % (45.5-73.1); Platelet Count Result 119 k/mm3 (150-375); Red Blood Count 3.32 M/mm3 (4.2-5.4); White Blood Count 6.1 K/mm3 (4.5-10.0)
[2025-02-09] MEDS: SODIUM CHLORIDE 0.9% IV 1,000 ML 125 ML IV CONT ×3 (05:57→20:38)
[2025-02-09 06:02] LABS: Anion Gap 5 mmol/L (4-12); Blood Urea Nitrogen 8 mg/dL (7-17); Calcium 8.2 mg/dL (8.4-10.2); Carbon Dioxide 25 mmol/L (22-30); Chloride 106 mmol/L (98-107); Estimated CRCL calculation 61 ml/min; Estimated Glomerular Filt Rate > 60; Glucose 88 mg/dL (65-110); Potassium 3.8 mmol/L (3.4-5.0); Sodium 136 mmol/L (137-145)
[2025-02-09] MEDS: SENNA/DOCUSATE SODIUM TABLET 2 TAB PO ×2 (08:43→17:10)
[2025-02-09] MEDS: FAMOTIDINE 20 MG TABLET PO ×2 (08:43→20:35)
[2025-02-09] MEDS: traMADol HCL (*CRX) 50 MG TABLET PO (08:43)
[2025-02-09] MEDS: ENOXAPARIN 40 MG/0.4 ML SYRINGE SUB-Q (08:44)
[2025-02-09] MEDS: polyethylene glycoL 3350 17 GM POWD.PACK PO (08:44)
--- NOTE | 2025-02-09 12:27 | P.PNIM_ITS ---
Progress Note: A&P Assessment and Plan (1) Fracture of scaphoid of right wrist: Qualifiers: Encounter type: initial encounter Fracture alignment: nondisplaced Fracture type: closed Scaphoid bone location: unspecified portion of scaphoid Qualified Code(s): S62.001A - Unspecified fracture of navicular [scaphoid] bone of right wrist, initial encounter for closed fracture Code(s): S62.001A - Unspecified fracture of navicular [scaphoid] bone of right wrist, initial encounter for closed fracture Status: Acute (2) Fracture of right femur: Qualifiers: Encounter type: initial encounter Femur location: neck, unspecified portion Fracture type: closed Qualified Code(s): S72.001A - Fracture of unspecified part of neck of right femur, initial encounter for closed fracture Code(s): S72.91XA - Unspecified fracture of right femur, initial encounter for closed fracture Status: Acute Plan Right femoral neck fracture From mechanical fall S/P repair. Right Hip Percutaneous Screw Fixation CT hip reviewed Continue PRN pain control PT/OT recs rehab Ortho team on board Right scaphoid fracture from fall as above PRN pain control ortho team on board COPD DuoNeb prn Tobacco use patient counseled about cessation DVT prophylaxis on Sq lovenox Full code SDM: Jeremy Lopez Subjective Date/time seen: 02/09/25 12:27 Interval history: per hpi: 74 yo female with PMH of COPD who presented to the ER on account of right hip pain after a fall. Noted she was fixing a dispenser in the bathroom at work when she pulled on it and fell backwards on her right side. Denies any chest pain, SOB, abd pain, diarrhea, vomiting or dysuria prior to epi sode. ER eval notable for vital stable and wnl, labs unremarkable, CT hip showed right femoral neck fracture Xray right wrist showed right scaphoid fracture. CXR unremarkable. Ortho was consulted prior to admission 02/08/25 Patient was seen and examined at bedside. She is back from surgery. Pain is under control. Denies any chest pain, shortness off breath, nausea vomiting. 02/09/25 Patient was seen and examined at bedside. she is feeling fine, denies chest pain,SOB,abd pain. Legs pain is under control at rest but getting worse with activity. Review of Systems Review of Systems: All other systems were reviewed adn negative except as noted in the HPI above Exam Narrative: General: alert and comfortable Eyes: EOMI, PERRLA ENNT External ears normal, Neck is supple, no masses, Respiratory systems: Clear to auscultation Cardiovascular S1, S2, normal rhythm, no murmur, rub, or gallop; no thrill or palpable murmurs on palpation. Gastrointestinal: soft, non-tender, and non-distended abdomen with no masses; BS present Skin: no rash, lesions, ulcerations, subcutaneous nodules or induration Musculoskeletal: limited ROM RE due to pain, and right wrist in cast Neurologic: Alert and oriented x3, non focal Mental Status Exam: normal affect Objective Data Vital Signs Vital Signs: Vital Signs - 24 hr 02/08/25 12:36 02/08/25 12:55 02/08/25 13:10 Temperature 99.4 F Pulse Rate 73 73 77 Respiratory Rate 16 16 16 Blood Pressure 121/48 L 150/73 H 141/70 H Pulse Oximetry 100 100 90 Oxygen Delivery Simple Face Mask Simple Face Mask Room Air Oxygen Flow Rate 8 8 02/08/25 13:25 02/08/25 13:40 02/08/25 13:50 Temperature Pulse Rate 82 86 76 Respiratory Rate 14 18 16 Blood Pressure 137/52 L 130/58 L 121/61 Pulse Oximetry 95 96 96 Oxygen Delivery Nasal Cannula Nasal Cannula Nasal Cannula Oxygen Flow Rate 2 2 2 02/08/25 14:15 02/08/25 14:26 02/08/25 14:49 Temperature 98.8 F Pulse Rate 77 Respiratory Rate 18 Blood Pressure 128/73 Pulse Oximetry 93 Oxygen Delivery Nasal Cannula Nasal Cannula Oxygen Flow Rate 2 2 02/08/25 15:09 02/08/25 15:38 02/08/25 22:00 Temperature 98.8 F 98.6 F 98.6 F Pulse Rate 72 75 81 Respiratory Rate 18 18 16 Blood Pressure 131/51 L 121/55 L 128/61 Pulse Oximetry 96 96 93 Oxygen Delivery Oxygen Flow Rate 02/09/25 00:15 02/09/25 06:23 02/09/25 08:07 Temperature 98.6 F 97.7 F Pulse Rate 73 72 Respiratory Rate 18 16 Blood Pressure 121/59 L 143/56 H Pulse Oximetry 96 96 Oxygen Delivery Nasal Cannula Oxygen Flow Rate 2 02/09/25 08:43 02/09/25 10:23 02/09/25 11:30 Temperature 97.6 F Pulse Rate 73 Respiratory Rate 20 Blood Pressure 121/50 L Pulse Oximetry 92 93 Oxygen Delivery Nasal Cannula Room Air Oxygen Flow Rate 2 Intake/Output Intake/Output: Intake & Output 02/06/25 02/07/25 02/08/25 02/09/25 23:59 23:59 23:59 23:59 Intake Total 2210.9 1660 Output Total 400 400 Balance 1810.9 1260 Meds/Results Medications: Active Medications Generic Name Dose Route Start Last Admin Trade Name Freq PRN Reason Stop Dose Admin Hydrocodone Bitart/Acetaminophen 1 tab 02/08/25 12:38 02/08/25 18:04 Hydrocodone/Acetaminophen (*Crx) 5-325 Mg Tablet PO 1 tab Q4H PRN Administration Pain Rated 4-6 Hydrocodone Bitart/Acetaminophen 1 tab 02/08/25 12:38 Hydrocodone/Acetaminophen (*Crx) 10-325 Mg Tablet PO Q4H PRN Pain Rated 7-10 Al Hydrox/Mg Hydrox/Simethicone 30 ml 02/08/25 12:38 Mag Hydrox/Al Hydrox/Simeth 30 Ml Udc PO Q6H PRN Indigestion Albuterol 2 puff 02/08/25 16:11 Albuterol Sulfate (*Sp) Aerosol 1 Puff INHALATION Q4H PRN shortness of breath or wheezing Bisacodyl 10 mg 02/08/25 12:38 Bisacodyl 10 Mg Suppository RECTAL DAILY PRN Constipation Enoxaparin Sodium 40 mg 02/08/25 09:00 02/09/25 08:44 Enoxaparin 40 Mg/0.4 Ml Syringe SUB-Q 40 mg DAILY LUNA Administration Famotidine 20 mg 02/08/25 21:00 02/09/25 08:43 Famotidine 20 Mg Tablet PO 20 mg Q12HR LUNA Administration Hydromorphone HCl 1 mg 02/08/25 12:46 Hydromorphone Hcl Inj (*Crx) 2 Mg/Ml Vial IV PUSH Q2H PRN Breakthrough Pain Rated 7-10 or NPO Hydromorphone HCl 0.5 mg 02/08/25 12:46 Hydromorphone Hcl Inj (*Crx) 2 Mg/Ml Vial IV PUSH Q2H PRN Breakthrough Pain Rated 4-6 or NPO Hydroxyzine Pamoate 50 mg 02/08/25 12:38 Hydroxyzine Pamoate 25 Mg Capsule PO Q4H PRN Itching Ibuprofen 400 mg/ Sodium 104 mls @ 208 mls/hr 02/07/25 20:07 Chloride IVPB Q6H PRN Pain Rated 4-6 Sodium Chloride 1,000 mls @ 125 mls/hr 02/08/25 12:40 02/09/25 05:57 Normal Saline Iv IV CONT 125 mls/hr .Q8H LUNA Administration Ibuprofen 800 mg in 200 mls @ 400 mls/hr 02/08/25 12:38 Caldolor 800 Mg/200 Ml IVPB Q6H PRN Breakthrough Pain Rated 1-3 or NPO Naloxone HCl 0.1 mg 02/08/25 12:38 Naloxone Hcl 0.4 Mg/Ml Vial IV PUSH Q2M PRN Opiate Reversal Ondansetron HCl 4 mg 02/08/25 10:26 Ondansetron Inj 4 Mg/2 Ml Vial IV PUSH ONCE PRN Nausea Ondansetron HCl 4 mg 02/08/25 12:38 Ondansetron Inj 4 Mg/2 Ml Vial IV PUSH Q4H PRN Nausea And Vomiting Polyethylene Glycol 17 gm 02/09/25 09:00 02/09/25 08:44 Polyethylene Glycol 3350 17 Gm Powd.Pack PO 17 gm QAM LUNA Administration Senna/Docusate Sodium 2 tab 02/08/25 17:00 02/09/25 08:43 Senna/Docusate Sodium Tablet PO 2 tab BID LUNA Administration Tramadol HCl 50 mg 02/08/25 12:38 02/09/25 08:43 Tramadol Hcl (*Crx) 50 Mg Tablet PO 50 mg Q4H PRN Administration Pain Rated 1-3 Radiology Results: ITS Impressions Wrist X-Ray 02/07/25 16:48 IMPRESSION: Possible fracture in the scaphoid bone. Follow-up advised. Chest X-Ray 02/07/25 16:49 IMPRESSION: No focal infiltrate or effusion. Hip/Pelvis X-Ray 02/07/25 16:50 IMPRESSION: Highly suggestive fracture in the right femoral neck. CT evaluation advised. Hip CT 02/07/25 17:42 IMPRESSION: Fracture of the right femoral neck in the subcapital area. No other fractures seen. Intraoperative X-Ray 02/08/25 12:38 IMPRESSION: 1. Fluoroscopy utilized during lag screw fixation of a nondisplaced subcapital fracture of the proximal right femur which remains in near-anatomic alignment. See procedure note for further detail. Labs Labs: Laboratory Results - last 24 hr 02/09/25 04:42 WBC 6.1 RBC 3.32 L Hgb 10.7 L Hct 32.9 L MCV 99.1 MCH 32.2 MCHC 32.5 RDW 13.0 Plt Count 119 L MPV 10.4 Immature Gran % (Auto) 0.7 H Neut % (Auto) 75.8 H Lymph % (Auto) 9.8 L [place] % (Auto) 8.9 H Eos % (Auto) 4.3 Baso % (Auto) 0.5 Lymph # (Auto) 0.59 L [place] # (Auto) 0.5 Eos # (Auto) 0.3 Baso # (Auto) 0.0 Abs Immat Gran (auto) 0.04 H Absolute Neuts (auto) 4.6 Absolute Nucleated RBC 0.000 Nucleated RBC % 0.0 Sodium 136 L Potassium 3.8 Chloride 106 Carbon Dioxide 25 Anion Gap 5 BUN 8 Creatinine 0.51 L Estim Creat Clear Calc 61 Estimated GFR > 60 Glucose 88 Calcium 8.2 L
--- NOTE | 2025-02-09 15:46 | PM.PNORT ---
Progress Note: A&P Assessment and Plan (1) Fracture of right femur: Qualifiers: Encounter type: initial encounter Femur location: neck, unspecified portion Fracture type: closed Qualified Code(s): S72.001A - Fracture of unspecified part of neck of right femur, initial encounter for closed fracture Code(s): S72.91XA - Unspecified fracture of right femur, initial encounter for closed fracture Status: Acute (2) Fracture of scaphoid of right wrist: Qualifiers: Encounter type: initial encounter Fracture alignment: nondisplaced Fracture type: closed Scaphoid bone location: unspecified portion of scaphoid Qualified Code(s): S62.001A - Unspecified fracture of navicular [scaphoid] bone of right wrist, initial encounter for closed fracture Code(s): S62.001A - Unspecified fracture of navicular [scaphoid] bone of right wrist, initial encounter for closed fracture Status: Acute Plan Doing well post op. - continue TTWB Right Lower Extremity - follow up in [address] Francisco - plan DVT prophylaxis with ECASA 81mg bid x 4 wks from Date of Surgery. Subjective Subjective Date/Time Seen: 02/09/25 15:46 Post Op day: 1 Principal diagnosis: Right Hip Fracture s/p Right Hip Perc Screw Fixation Interval history: Min pain, sitting up awake and alert. Exam Narrative: Right Wrist in Short arm splint with Right hip Bandaged and Dry Const: General: cooperative, healthy appearing, comfortable, no acute distress, well developed, alert, awake and average body habitus Nutritional Appearance: average body habitus Orientation/consciousness: oriented to person, oriented to place and oriented to time Neuro: General: oriented to person, oriented to place and oriented to time Objective Data Vital Signs Vital Signs: Vital Signs - 24 hr 02/08/25 22:00 02/09/25 00:15 02/09/25 06:23 Temperature 37.0 C 37.0 C 36.5 C Pulse Rate 81 73 72 Respiratory Rate 16 18 16 Blood Pressure 128/61 121/59 L 143/56 H Pulse Oximetry 93 96 96 Oxygen Delivery Oxygen Flow Rate 02/09/25 08:07 02/09/25 08:43 02/09/25 10:23 Temperature 36.4 C Pulse Rate 73 Respiratory Rate 20 Blood Pressure 121/50 L Pulse Oximetry 92 93 Oxygen Delivery Nasal Cannula Nasal Cannula Oxygen Flow Rate 2 2 02/09/25 11:30 Temperature Pulse Rate Respiratory Rate Blood Pressure Pulse Oximetry Oxygen Delivery Room Air Oxygen Flow Rate Intake/Output Intake/Output: Intake & Output 02/06/25 02/07/25 02/08/25 02/09/25 23:59 23:59 23:59 23:59 Intake Total 2210.9 2950 Output Total 400 400 Balance 1810.9 2550 Meds/Results Medications: Active Medications Generic Name Dose Route Start Last Admin Trade Name Freq PRN Reason Stop Dose Admin Hydrocodone Bitart/Acetaminophen 1 tab 02/08/25 12:38 02/08/25 18:04 Hydrocodone/Acetaminophen (*Crx) 5-325 Mg Tablet PO 1 tab Q4H PRN Administration Pain Rated 4-6 Hydrocodone Bitart/Acetaminophen 1 tab 02/08/25 12:38 Hydrocodone/Acetaminophen (*Crx) 10-325 Mg Tablet PO Q4H PRN Pain Rated 7-10 Al Hydrox/Mg Hydrox/Simethicone 30 ml 02/08/25 12:38 Mag Hydrox/Al Hydrox/Simeth 30 Ml Udc PO Q6H PRN Indigestion Albuterol 2 puff 02/08/25 16:11 Albuterol Sulfate (*Sp) Aerosol 1 Puff INHALATION Q4H PRN shortness of breath or wheezing Bisacodyl 10 mg 02/08/25 12:38 Bisacodyl 10 Mg Suppository RECTAL DAILY PRN Constipation Enoxaparin Sodium 40 mg 02/08/25 09:00 02/09/25 08:44 Enoxaparin 40 Mg/0.4 Ml Syringe SUB-Q 40 mg DAILY LUNA Administration Famotidine 20 mg 02/08/25 21:00 02/09/25 08:43 Famotidine 20 Mg Tablet PO 20 mg Q12HR LUNA Administration Hydromorphone HCl 1 mg 02/08/25 12:46 Hydromorphone Hcl Inj (*Crx) 2 Mg/Ml Vial IV PUSH Q2H PRN Breakthrough Pain Rated 7-10 or NPO Hydromorphone HCl 0.5 mg 02/08/25 12:46 Hydromorphone Hcl Inj (*Crx) 2 Mg/Ml Vial IV PUSH Q2H PRN Breakthrough Pain Rated 4-6 or NPO Hydroxyzine Pamoate 50 mg 02/08/25 12:38 Hydroxyzine Pamoate 25 Mg Capsule PO Q4H PRN Itching Ibuprofen 400 mg/ Sodium 104 mls @ 208 mls/hr 02/07/25 20:07 Chloride IVPB Q6H PRN Pain Rated 4-6 Sodium Chloride 1,000 mls @ 125 mls/hr 02/08/25 12:40 02/09/25 14:52 Normal Saline Iv IV CONT 125 mls/hr .Q8H LUNA Administration Ibuprofen 800 mg in 200 mls @ 400 mls/hr 02/08/25 12:38 Caldolor 800 Mg/200 Ml IVPB Q6H PRN Breakthrough Pain Rated 1-3 or NPO Naloxone HCl 0.1 mg 02/08/25 12:38 Naloxone Hcl 0.4 Mg/Ml Vial IV PUSH Q2M PRN Opiate Reversal Ondansetron HCl 4 mg 02/08/25 10:26 Ondansetron Inj 4 Mg/2 Ml Vial IV PUSH ONCE PRN Nausea Ondansetron HCl 4 mg 02/08/25 12:38 Ondansetron Inj 4 Mg/2 Ml Vial IV PUSH Q4H PRN Nausea And Vomiting Polyethylene Glycol 17 gm 02/09/25 09:00 02/09/25 08:44 Polyethylene Glycol 3350 17 Gm Powd.Pack PO 17 gm QAM LUNA Administration Senna/Docusate Sodium 2 tab 02/08/25 17:00 02/09/25 08:43 Senna/Docusate Sodium Tablet PO 2 tab BID LUNA Administration Tramadol HCl 50 mg 02/08/25 12:38 02/09/25 08:43 Tramadol Hcl (*Crx) 50 Mg Tablet PO 50 mg Q4H PRN Administration Pain Rated 1-3 Radiology Results: ITS Impressions Wrist X-Ray 02/07/25 16:48 IMPRESSION: Possible fracture in the scaphoid bone. Follow-up advised. Chest X-Ray 02/07/25 16:49 IMPRESSION: No focal infiltrate or effusion. Hip/Pelvis X-Ray 02/07/25 16:50 IMPRESSION: Highly suggestive fracture in the right femoral neck. CT evaluation advised. Hip CT 02/07/25 17:42 IMPRESSION: Fracture of the right femoral neck in the subcapital area. No other fractures seen. Intraoperative X-Ray 02/08/25 12:38 IMPRESSION: 1. Fluoroscopy utilized during lag screw fixation of a nondisplaced subcapital fracture of the proximal right femur which remains in near-anatomic alignment. See procedure note for further detail. Labs Labs: Laboratory Results - last 24 hr 02/09/25 04:42 WBC 6.1 RBC 3.32 L Hgb 10.7 L Hct 32.9 L MCV 99.1 MCH 32.2 MCHC 32.5 RDW 13.0 Plt Count 119 L MPV 10.4 Immature Gran % (Auto) 0.7 H Neut % (Auto) 75.8 H Lymph % (Auto) 9.8 L [place] % (Auto) 8.9 H Eos % (Auto) 4.3 Baso % (Auto) 0.5 Lymph # (Auto) 0.59 L [place] # (Auto) 0.5 Eos # (Auto) 0.3 Baso # (Auto) 0.0 Abs Immat Gran (auto) 0.04 H Absolute Neuts (auto) 4.6 Absolute Nucleated RBC 0.000 Nucleated RBC % 0.0 Sodium 136 L Potassium 3.8 Chloride 106 Carbon Dioxide 25 Anion Gap 5 BUN 8 Creatinine 0.51 L Estim Creat Clear Calc 61 Estimated GFR > 60 Glucose 88 Calcium 8.2 L
[2025-02-09] MEDS: HYDROcodone/acetaminophen (*CRX) 5-325 MG TABLET 1 TAB PO (20:35)
[2025-02-10] MEDS: ONDANSETRON INJ 4 MG/2 ML VIAL IV PUSH (03:11)
[2025-02-10 05:13] VITALS: BP 138/58; PULSE 74; RESP 16; TEMP 36.7; O2SAT 90
[2025-02-10 05:16] LABS: Hemoglobin 11.1 g/dL (12.0-15.0); Immature Platelet Fraction Pct 3.4 % (0.9-11.2); Mean Corpuscular HGB Conc 32.6 g/dl (32-36); Mean Corpuscular Hemoglobin 32.4 pg (26-34); Mean Corpuscular Volume 99.1 fl (80-100); Mean Platelet Volume 10.4 fl (7.4-10.4); Platelet Count Result 110 k/mm3 (150-375); Red Blood Count 3.43 M/mm3 (4.2-5.4); Red Cell Distribution Width 12.7 % (11.5-14.5); White Blood Count 5.3 K/mm3 (4.5-10.0)
[2025-02-10 05:51] LABS: Anion Gap 5 mmol/L (4-12); Blood Urea Nitrogen 6 mg/dL (7-17); Calcium 8.5 mg/dL (8.4-10.2); Carbon Dioxide 26 mmol/L (22-30); Chloride 107 mmol/L (98-107); Estimated CRCL calculation 63 ml/min; Estimated Glomerular Filt Rate > 60; Glucose 94 mg/dL (65-110); Potassium 3.8 mmol/L (3.4-5.0); Sodium 138 mmol/L (137-145)
[2025-02-10] MEDS: SODIUM CHLORIDE 0.9% IV 1,000 ML 125 ML IV CONT (06:57)
[2025-02-10 08:29] VITALS: PULSE 74; RESP 16; O2SAT 90
[2025-02-10] MEDS: FAMOTIDINE 20 MG TABLET PO ×2 (08:29→21:04)
[2025-02-10] MEDS: SENNA/DOCUSATE SODIUM TABLET 2 TAB PO (08:29)
[2025-02-10] MEDS: ENOXAPARIN 40 MG/0.4 ML SYRINGE SUB-Q (08:29)
[2025-02-10] MEDS: polyethylene glycoL 3350 17 GM POWD.PACK PO (08:29)
--- NOTE | 2025-02-10 14:32 | P.PNIM_ITS ---
Progress Note: A&P Assessment and Plan (1) Fracture of scaphoid of right wrist: Qualifiers: Encounter type: initial encounter Fracture alignment: nondisplaced Fracture type: closed Scaphoid bone location: unspecified portion of scaphoid Qualified Code(s): S62.001A - Unspecified fracture of navicular [scaphoid] bone of right wrist, initial encounter for closed fracture Code(s): S62.001A - Unspecified fracture of navicular [scaphoid] bone of right wrist, initial encounter for closed fracture Status: Acute (2) Fracture of right femur: Qualifiers: Encounter type: initial encounter Femur location: neck, unspecified portion Fracture type: closed Qualified Code(s): S72.001A - Fracture of unspecified part of neck of right femur, initial encounter for closed fracture Code(s): S72.91XA - Unspecified fracture of right femur, initial encounter for closed fracture Status: Acute Plan Right femoral neck fracture From mechanical fall S/P repair. Right Hip Percutaneous Screw Fixation CT hip reviewed Continue PRN pain control PT/OT recs rehab Ortho team on board Right scaphoid fracture from fall as above PRN pain control ortho team on board COPD DuoNeb prn Tobacco use patient counseled about cessation DVT prophylaxis on Sq lovenox Full code SDM: Jeremy Lopez Subjective Date/time seen: 02/10/25 14:32 Interval history: per hpi: 74 yo female with PMH of COPD who presented to the ER on account of right hip pain after a fall. Noted she was fixing a dispenser in the bathroom at work when she pulled on it and fell backwards on her right side. Denies any chest pain, SOB, abd pain, diarrhea, vomiting or dysuria prior to epi sode. ER eval notable for vital stable and wnl, labs unremarkable, CT hip showed right femoral neck fracture Xray right wrist showed right scaphoid fracture. CXR unremarkable. Ortho was consulted prior to admission 02/08/25 Patient was seen and examined at bedside. She is back from surgery. Pain is under control. Denies any chest pain, shortness off breath, nausea vomiting. 02/09/25 . Legs pain is under control at rest but getting worse with activity. 02/10/25 Patient was seen and examined at bedside. she is feeling fine, denies chest pain,SOB,abd pain. waiting for placement Review of Systems Review of Systems: All other systems were reviewed adn negative except as noted in the HPI above Exam Narrative: General: alert and comfortable Eyes: EOMI, PERRLA ENNT External ears normal, Neck is supple, no masses, Respiratory systems: Clear to auscultation Cardiovascular S1, S2, normal rhythm, no murmur, rub, or gallop; no thrill or palpable murmurs on palpation. Gastrointestinal: soft, non-tender, and non-distended abdomen with no masses; BS present Skin: no rash, lesions, ulcerations, subcutaneous nodules or induration Musculoskeletal: limited ROM RE due to pain, and right wrist in cast Neurologic: Alert and oriented x3, non focal Mental Status Exam: normal affect Objective Data Vital Signs Vital Signs: Vital Signs - 24 hr 02/09/25 18:49 02/09/25 20:00 02/09/25 20:07 Temperature 97.9 F 98.2 F Pulse Rate 63 69 69 Respiratory Rate 18 17 17 Blood Pressure 143/62 H 146/57 H Pulse Oximetry 95 94 94 Oxygen Delivery Room Air 02/10/25 05:13 02/10/25 08:29 Temperature 98.0 F Pulse Rate 74 74 Respiratory Rate 16 16 Blood Pressure 138/58 L Pulse Oximetry 90 90 Oxygen Delivery Room Air Intake/Output Intake/Output: Intake & Output 02/07/25 02/08/25 02/09/25 02/10/25 23:59 23:59 23:59 23:59 Intake Total 2210.9 3910.8 1240 Output Total 400 750 700 Balance 1810.9 3160.8 540 Meds/Results Medications: Active Medications Generic Name Dose Route Start Last Admin Trade Name Freq PRN Reason Stop Dose Admin Hydrocodone Bitart/Acetaminophen 1 tab 02/08/25 12:38 02/09/25 20:35 Hydrocodone/Acetaminophen (*Crx) 5-325 Mg Tablet PO 1 tab Q4H PRN Administration Pain Rated 4-6 Hydrocodone Bitart/Acetaminophen 1 tab 02/08/25 12:38 Hydrocodone/Acetaminophen (*Crx) 10-325 Mg Tablet PO Q4H PRN Pain Rated 7-10 Al Hydrox/Mg Hydrox/Simethicone 30 ml 02/08/25 12:38 Mag Hydrox/Al Hydrox/Simeth 30 Ml Udc PO Q6H PRN Indigestion Albuterol 2 puff 02/08/25 16:11 Albuterol Sulfate (*Sp) Aerosol 1 Puff INHALATION Q4H PRN shortness of breath or wheezing Bisacodyl 10 mg 02/08/25 12:38 Bisacodyl 10 Mg Suppository RECTAL DAILY PRN Constipation Enoxaparin Sodium 40 mg 02/08/25 09:00 02/10/25 08:29 Enoxaparin 40 Mg/0.4 Ml Syringe SUB-Q 40 mg DAILY LUNA Administration Famotidine 20 mg 02/08/25 21:00 02/10/25 08:29 Famotidine 20 Mg Tablet PO 20 mg Q12HR LUNA Administration Hydromorphone HCl 1 mg 02/08/25 12:46 Hydromorphone Hcl Inj (*Crx) 2 Mg/Ml Vial IV PUSH Q2H PRN Breakthrough Pain Rated 7-10 or NPO Hydromorphone HCl 0.5 mg 02/08/25 12:46 Hydromorphone Hcl Inj (*Crx) 2 Mg/Ml Vial IV PUSH Q2H PRN Breakthrough Pain Rated 4-6 or NPO Hydroxyzine Pamoate 50 mg 02/08/25 12:38 Hydroxyzine Pamoate 25 Mg Capsule PO Q4H PRN Itching Ibuprofen 400 mg/ Sodium 104 mls @ 208 mls/hr 02/07/25 20:07 Chloride IVPB Q6H PRN Pain Rated 4-6 Ibuprofen 800 mg in 200 mls @ 400 mls/hr 02/08/25 12:38 Caldolor 800 Mg/200 Ml IVPB Q6H PRN Breakthrough Pain Rated 1-3 or NPO Naloxone HCl 0.1 mg 02/08/25 12:38 Naloxone Hcl 0.4 Mg/Ml Vial IV PUSH Q2M PRN Opiate Reversal Ondansetron HCl 4 mg 02/08/25 10:26 02/10/25 03:11 Ondansetron Inj 4 Mg/2 Ml Vial IV PUSH 4 mg ONCE PRN Administration Nausea Ondansetron HCl 4 mg 02/08/25 12:38 Ondansetron Inj 4 Mg/2 Ml Vial IV PUSH Q4H PRN Nausea And Vomiting Polyethylene Glycol 17 gm 02/09/25 09:00 02/10/25 08:29 Polyethylene Glycol 3350 17 Gm Powd.Pack PO 17 gm QAM LUNA Administration Senna/Docusate Sodium 2 tab 02/08/25 17:00 02/10/25 08:29 Senna/Docusate Sodium Tablet PO 2 tab BID LUNA Administration Tramadol HCl 50 mg 02/08/25 12:38 02/09/25 08:43 Tramadol Hcl (*Crx) 50 Mg Tablet PO 50 mg Q4H PRN Administration Pain Rated 1-3 Radiology Results: ITS Impressions Wrist X-Ray 02/07/25 16:48 IMPRESSION: Possible fracture in the scaphoid bone. Follow-up advised. Chest X-Ray 02/07/25 16:49 IMPRESSION: No focal infiltrate or effusion. Hip/Pelvis X-Ray 02/07/25 16:50 IMPRESSION: Highly suggestive fracture in the right femoral neck. CT evaluation advised. Hip CT 02/07/25 17:42 IMPRESSION: Fracture of the right femoral neck in the subcapital area. No other fractures seen. Intraoperative X-Ray 02/08/25 12:38 IMPRESSION: 1. Fluoroscopy utilized during lag screw fixation of a nondisplaced subcapital fracture of the proximal right femur which remains in near-anatomic alignment. See procedure note for further detail. Labs Labs: Laboratory Results - last 24 hr 02/10/25 04:59 WBC 5.3 RBC 3.43 L Hgb 11.1 L Hct 34.0 L MCV 99.1 MCH 32.4 MCHC 32.6 RDW 12.7 Plt Count 110 L MPV 10.4 % Immature Plt Fraction 3.4 Sodium 138 Potassium 3.8 Chloride 107 Carbon Dioxide 26 Anion Gap 5 BUN 6 L Creatinine 0.49 L Estim Creat Clear Calc 63 Estimated GFR > 60 Glucose 94 Calcium 8.5
[2025-02-10] MEDS: ASPIRIN 81 MG ENTERIC TABLET PO (16:29)
[2025-02-10 20:00] VITALS: PULSE 87; RESP 20; O2SAT 91
[2025-02-10 21:20] VITALS: BP 194/69; PULSE 87; RESP 20; TEMP 36.4; O2SAT 91
[2025-02-11 05:37] VITALS: BP 134/52; PULSE 66; RESP 20; TEMP 36.2; O2SAT 96
[2025-02-11 08:15] LABS: Glucose Point of Care 94 mg/dl (65-105)
[2025-02-11 09:13] VITALS: PULSE 66; RESP 20; O2SAT 96
[2025-02-11] MEDS: ASPIRIN 81 MG ENTERIC TABLET PO (09:13)
--- NOTE | 2025-02-11 10:14 | PCPTNOTE ---
Attempted to see patient for PT, however patient refused due to anticipated discharge this date.
--- NOTE | 2025-02-11 10:55 | PM.DS ---
DS: Admitting Diagnosis Discharge Date 02/11/25 Admitting Diagnosis Fall, R femur fX DS: Discharge Diagnosis Discharge Diagnosis (1) Fracture of scaphoid of right wrist: Qualifiers: Encounter type: initial encounter Fracture alignment: nondisplaced Fracture type: closed Scaphoid bone location: unspecified portion of scaphoid Qualified Code(s): S62.001A - Unspecified fracture of navicular [scaphoid] bone of right wrist, initial encounter for closed fracture Code(s): S62.001A - Unspecified fracture of navicular [scaphoid] bone of right wrist, initial encounter for closed fracture Status: Acute (2) Fracture of right femur: Qualifiers: Encounter type: initial encounter Femur location: neck, unspecified portion Fracture type: closed Qualified Code(s): S72.001A - Fracture of unspecified part of neck of right femur, initial encounter for closed fracture Code(s): S72.91XA - Unspecified fracture of right femur, initial encounter for closed fracture Status: Acute Plan Right femoral neck fracture From mechanical fall S/P repair. Right Hip Percutaneous Screw Fixation CT hip reviewed Continue PRN pain control PT/OT recs rehab Ortho team on board Right scaphoid fracture from fall as above PRN pain control ortho team on board COPD DuoNeb prn Tobacco use patient counseled about cessation DVT prophylaxis on Sq lovenox Full code SDM: Jeremy Lopez DS: Summary Hospital Course Hospital Course: 74 yo female with PMH of COPD who presented to the ER on account of right hip pain after a fall. Noted she was fixing a dispenser in the bathroom at work when she pulled on it and fell backwards on her right side. Denies any chest pain, SOB, abd pain, diarrhea, vomiting or dysuria prior to episode. ER eval notable for vital stable and wnl, labs unremarkable, CT hip showed right femoral neck fracture Xray right wrist showed right scaphoid fracture. CXR unremarkable. Ortho was consulted prior to admission 02/08/25 Patient was seen and examined at bedside. She is back from surgery. Pain is under control. Denies any chest pain, shortness off breath, nausea vomiting. 02/11/25 Patient was seen and examined at bedside. she is feeling fine, denies chest pain,SOB,abd pain. will discharge patient to the rehab Status at Discharge Overall status at discharge: patient is progressing back to baseline Time Spent with Patient Time attestation: Total time spent providing and/or coordinating discharge services: Time spent: Greater than 30 minutes Exam Narrative: General: alert and comfortable Eyes: EOMI, PERRLA ENNT External ears normal, Neck is supple, no masses, Respiratory systems: Clear to auscultation Cardiovascular S1, S2, normal rhythm, no murmur, rub, or gallop; no thrill or palpable murmurs on palpation. Gastrointestinal: soft, non-tender, and non-distended abdomen with no masses; BS present Skin: no rash, lesions, ulcerations, subcutaneous nodules or induration Musculoskeletal: limited ROM RE due to pain, and right wrist in cast Neurologic: Alert and oriented x3, non focal Mental Status Exam: normal affect DS: Data Data Completed and Pending Labs on day of discharge: Labs from last 24 hours 02/11/25 08:08 POC Capillary Glucose 94 Discharge Plan Discharge Attending physician on discharge: Michelle Kim Consulting providers: Rodrigo Francisco Discharging Clinician: Michelle Kim Anticipated Discharge Date/Time: 02/11/25 10:53 Patient Disposition: [facility] Activity: as tolerated Diet: as tolerated Discharge Instructions: - continue TTWB Right Lower Extremity - follow up in [address] Francisco - plan DVT prophylaxis with ECASA 81mg bid x 4 wks from Date of Surgery. Patient Language: Japanese Stand Alone Forms: General Discharge Information Follow-up/Referrals: OscarJamie MD [Primary Care Provider] - 1 Week Rodrigo Francisco MD [Physician] - 2 Weeks Discharge Medications: New aspirin 81 mg Tablet,Delayed Release (Dr/Ec) 81 mg PO BID Qty: 60 0RF Continued albuterol sulfate 90 mcg/actuation HFA aerosol inhaler 2 puff INHALATION Q4H PRN (Reason: shortness of breath or wheezing) Date of admission: 02/08/25 07:11 Primary Care Provider: PamellaJamie Admitting Provider: Ciera Vernon Attending physician on admission: Michelle Kim Condition: Stable
== END 2025-02-11 11:42 | DRG 482 ==
LOC: ANHED 20:11 → ANH3MEDSUR 20:46 → ANH2MED 21:36
PROVIDERS: Internal Medicine; Orthopaedic Surgery; Admitting Provider Internal Medicine; Emergency Provider Physician Assistant; PCP Internal Medicine; Visit Provider Internal Medicine
PROC: 0QH634Z Insertion of Internal Fixation Device into Right Upper Femur, Percutaneous Approach (ICD-10-PCS; principal; 2025-02-08 11:00)
DX: S72.011A Unspecified intracapsular fracture of right femur, initial encounter for closed fracture (principal); S62.001A Unspecified fracture of navicular [scaphoid] bone of right wrist, initial encounter for closed fracture; J44.9 Chronic obstructive pulmonary disease, unspecified; W18.39XA Other fall on same level, initial encounter; F17.210 Nicotine dependence, cigarettes, uncomplicated
CPT/HCPCS: 29125; 36415; 71045; 73110; 73502; 73700; 80048; 80053; 82948; 83735; 85025; 85027; 85055; 94640; 96361; 96374; 97110; 97161; 97165; 97530; 97535; 99199; 99285; A9270; C1713; C1769; G0378; J0690; J1650; J2004; J2270; J2405; J2704; J3010; J7030; J7120